=== PATIENT | male | born 1990 | race Caucasian/White ===

== ENCOUNTER 2024-06-10 10:59 | Outpatient (CLI) | payer OTHER, SELFPAY | END 2024-06-10 11:00 | disposition home or self-care (01) | PROVIDERS: Visit Provider Emergency Medicine Emergency Medical Services | DX: E11.649 Type 2 diabetes mellitus with hypoglycemia without coma (principal); R52 Pain, unspecified; R42 Dizziness and giddiness | CPT/HCPCS: A0425; A0429 ==

== ENCOUNTER 2024-06-10 11:31 | Emergency (ER) | payer OTHER, SELFPAY ==
[2024-06-10] VITALS (7 sets, daily range): BP systolic 128–146; BP diastolic 81–103; PULSE 93–116; RESP 18; TEMP 37.2; O2SAT 96–98; BMI 32.1
[2024-06-10 12:28] LABS: PCR FLU A Negative PCR FLU A (Negative); PCR FLU B Negative PCR FLU B (Negative); SARS PCR* Negative SARS-CoV-2 (Negative)
--- NOTE | 2024-06-10 12:29 | ED_ITS ---
HPI - General Adult General Chief complaint: Unspecified Complaint, Adult Stated complaint: weakness Time Seen by Provider: 06/10/24 12:10 History of Present Illness HPI narrative: This 34-year-old male comes in reporting some tingling sensation in his fingers and not feeling right. He also reports some pain across his upper back. He arrives with normal vital signs except his heart rate is a bit elevated and I do note that he has increased respiratory rate as there is an anxiety component to his current symptoms. He states that his father recently had a bypass surgery but the patient himself does not smoke and has no other risk factors. He is not reporting any chest pain. He does not have any exercise intolerance. Related Data Home Medications ?Medication ?Instructions ?Recorded ?Confirmed No Known Home Medications 06/10/24 06/10/24 Allergies Allergy/AdvReac Type Severity Reaction Status Date / Time No Known Drug Allergies Allergy Verified 06/10/24 11:38 Review of Systems Status of ROS: Reports: 10 or more systems reviewed and unremarkable except as noted in History and below Narrative: Constitutional: No fevers, no weight gain or loss. Eyes: No discharge. No vision changes. HENT: No congestion, no sore throat, no ear pain. Cardiovascular: No chest pain, no palpitations. Respiratory: No shortness of breath, no wheezes, no cough. Gastrointestinal: No abdominal pain, no vomiting, no diarrhea. Genitourinary: No dysuria, no hematuria. Musculoskeletal: Normal range of motion. He reports upper back pain. Skin: No rashes, no pruritis. Neurological: No dizziness, weakness, speech change. Endo/Heme/Allergies: No bruising or bleeding. No polydipsia. Pysch: no suicidality, no anxiety, no insomnia. All other systems reviewed and are negative. PFSH [facility] Social History Smoking Status: Never smoker How often do you have a drink containing alcohol: never AUDIT-C Alcohol total score: 0 Non-prescribed substance use: denies use Exam Narrative: Exam Narrative: Constitutional: Well-developed, well-nourished, no acute distress. HEENT: Normocephalic, atraumatic. Neck: Normal range of motion. Nontender. Supple. Heart: Regular. No murmurs. Normal rate. Intact distal pulses. Lungs: Clear to auscultation. No chest discomfort. No wheezes, rhonchi, or rales. Abdomen: Normal bowel sounds. Nontender. No rebound tenderness. Genitalia: Deferred. Back: No midline tenderness. Normal range of motion. Extremities: Normal range of motion. No injury. Skin: Intact. No rash. Warm. No erythema or pallor. Neurologic: No altered sensation. No weakness. Alert and oriented. No facial asymmetry. Tongue is midline. [id number] is normal. No pronator drift. [employer] [address] [employer] strength is equal bilaterally. Able to raise each leg from the bed. Psychiatric: No suicidality. No anxiety or depression. No insomnia. Nursing notes and vitals signs are reviewed. Const: Vital Signs, click to edit/add: Vital Signs - 24 hr 06/10/24 11:33 06/10/24 11:49 06/10/24 11:51 Temperature 99 F Pulse Rate 101 H 105 H Pulse Rate [Right Pulse Oximeter] 106 H Respiratory Rate 18 Blood Pressure 138/84 Blood Pressure [Ri ght Upper Arm] 146/103 H Pulse Oximetry 97 98 98 Oxygen Delivery Me thod Room Air 06/10/24 12:00 06/10/24 12:03 06/10/24 12:15 Temperature Pulse Rate 116 H 112 H 93 Pulse Rate [Right Pulse Oximeter] Respiratory Rate Blood Pressure 138/99 H Blood Pressure [Ri ght Upper Arm] Pulse Oximetry 97 97 96 Oxygen Delivery Me thod 06/10/24 13:32 Temperature Pulse Rate Pulse Rate [Right Pulse Oximeter] 102 H Respiratory Rate 18 Blood Pressure Blood Pressure [Ri ght Upper Arm] 128/81 Pulse Oximetry 96 Oxygen Delivery Me thod Room Air Course Vital Signs Vital signs: Initial Vital Signs Temperature 99 F 06/10/24 11:33 Temperature Source Temporal Artery Scan 06/10/24 11:33 Pulse Rate 106 H 06/10/24 11:33 Pulse Rhythm Regular 06/10/24 11:33 Respiratory Rate 18 06/10/24 11:33 Blood Pressure 146/103 H 06/10/24 11:33 Blood Pressure Mean 117 H 06/10/24 11:33 Blood Pressure Position Sitting 06/10/24 11:33 Pulse Oximetry 97 06/10/24 11:33 Oxygen Delivery Method Room Air 06/10/24 11:33 Vital Signs Temperature 99 F 06/10/24 11:33 Pulse Rate 106 H 06/10/24 11:33 Respiratory Rate 18 06/10/24 11:33 Blood Pressure 146/103 H 06/10/24 11:33 Pulse Oximetry 97 06/10/24 11:33 Oxygen Delivery Method Room Air 06/10/24 11:33 Temperature 99 F 06/10/24 11:33 Pulse Rate 102 H 06/10/24 13:32 Respiratory Rate 18 06/10/24 13:32 Blood Pressure 128/81 06/10/24 13:32 Pulse Oximetry 96 06/10/24 13:32 Oxygen Delivery Method Room Air 06/10/24 13:32 Medications Administered Medications: Discontinued Medications Generic Name Dose Route Start Last Admin Trade Name Trent PRN Reason Stop Dose Admin Ketorolac Tromethamine 10 mg 06/10/24 12:28 06/10/24 12:45 Ketorolac 10 Mg Tablet PO 06/10/24 12:29 10 mg ONCE ONE Administration Lorazepam 0.5 mg 06/10/24 12:28 06/10/24 12:45 Lorazepam 0.5 Mg Tablet PO 06/10/24 12:29 0.5 mg ONCE ONE Administration Medical Decision Making Lab Data Labs: Lab Results 06/10/24 06/10/24 Range/Units 11:40 11:43 SARS-CoV-2 (PCR) Negative SARS-CoV-2 (Negative) Influenza Type A (PCR) Negative PCR FLU A (Negative) Influenza Type B (PCR) Negative PCR FLU B (Negative) POC Glucose 130 H (60-115) mg/dl ECG Data Attestation: I personally reviewed and interpreted this ECG as follows: Interpretation: Normal sinus rhythm. Rate is 91 beats per minute. There are no ST or T-wave abnormalities. Discharge Plan Discharge Clinical Impression: Back pain Patient Disposition: Home, Self-Care Condition: Stable Additional Instructions: Take medication as prescribed and needed. Activity as tolerated. Follow up with MD return if worsening. Prescriptions: No Action No Known Home Medications Follow Up/Referrals: Provider,Not a Local [Primary Care Provider] - Stand Alone Forms: [employer] Info Instructions
[2024-06-10 12:41] LABS: Glucose, Point-of-Care* 130 mg/dl (60-115)
[2024-06-10] MEDS: KETOROLAC 10 MG TABLET PO (12:45)
[2024-06-10] MEDS: LORazepam 0.5 MG TABLET PO (12:45)
== END 2024-06-10 14:09 | disposition home or self-care (01) ==
PROVIDERS: Emergency Provider Emergency Medicine Emergency Medical Services
DX: M54.9 Dorsalgia, unspecified (principal)
CPT/HCPCS: 82947; 87631; 93005; 99283; 99284; A9270